=== PATIENT | male | born 1985 | race American Indian/Alaskan Native ===

== ENCOUNTER 2020-11-04 22:18 | Emergency (ER) | payer MEDICAID ==
[2020-11-04 23:53] LABS: Basophils % (Auto) 0.3 % (0.0-1.8); Eosinophils # (Auto) 0.1 K/mm3 (0.0-0.4); Eosinophils % (Auto) 1.4 % (0.0-4.3); Hematocrit 41.8 % (35.5-45.6); Hemoglobin 13.8 gm/dl (11.8-15.2); Lymphocytes # (Auto) 1.8 K/mm3 (1.2-5.4); Lymphocytes % (Auto) 42.9 % (13.4-35.0); Mean Corpuscular HGB Conc 33 % (32-34); Mean Corpuscular Volume 83 fl (84-94); Monocytes # (Auto) 0.5 K/mm3 (0.0-0.8); Monocytes % (Auto) 10.9 % (0.0-7.3); Platelet Count 206 K/mm3 (140-440); Red Blood Count 5.03 M/mm3 (3.65-5.03); Red Cell Distribution Width 15.5 % (13.2-15.2)
[2020-11-05 00:02] LABS: BUN/Creatinine Ratio 16; Blood Urea Nitrogen 18 mg/dL (9-20); Calcium 9.4 mg/dL (8.4-10.2); Hemolysis Index 6
[2020-11-05 01:12] LABS: Bilirubin,Urine NEG (Negative); Blood,Urine NEG (Negative); Color,Urine Yellow (Yellow); Mucus,Urine FEW /HPF; Protein,Urine <15 mg/dL mg/dL (Negative); RBC,Urine < 1.0 /HPF (0.0-6.0); Urobilinogen,Urine < 2.0 mg/dL (<2.0)
[2020-11-05 01:19] LABS: Amphetamine Screen,Urine PRESUMPTIVE NEGATIVE; Benzodiazepines Screen,Urine PRESUMPTIVE NEGATIVE; Cannabinoid Screen,Urine PRESUMPTIVE NEGATIVE; Cocaine Screen,Urine PRESUMPTIVE NEGATIVE; Methadone Screen,Urine PRESUMPTIVE NEGATIVE; Opiate Screen,Urine PRESUMPTIVE NEGATIVE
[2020-11-05] MEDS ORDERED: ACETAMINOPHEN 325 MG TAB PO ONE (01:51)
--- NOTE | 2020-11-05 02:07 | Emergency Department Report ---
ED Medical Clearance HPI - General Chief complaint: Medical Clearance Stated complaint: HIGH BP Time Seen by Provider: 11/05/20 01:50 Source: patient Mode of arrival: Ambulatory - History of Present Illness Initial comments: Patient is a 35-year-old male who presents emergency room with needing medical clearance. Patient states he views medical clearance to be admitted to [facility]. Patient states he was sent to [facility] specifically for medical clearance. Patient states is already been accepted. Patient denies chest pain. Patient denies chest pain. Patient denies anxiety. Patient complains of depression. Patient denies suicidal homicidal ideation. Patient denies hallucinations. Patient complains of a headache. States headache is a 3 out of 10. Patient states it is a mild frontal headache. Patient denies blurry vision. Patient denies fever. Patient denies chills. Patient denies neck stiffness. Patient denies recent travel. Patient denies recent international travel. Patient denies exposure to the novel coronavirus. Patient denies sick contacts. Patient denies fever and chills. Patient denies cough. Patient denies diarrhea. Patient denies coming in contact with anybody with symptoms of the novel coronavirus. Complaint: medical clearance request -: Sudden Reason for Medical Clearance: psychiatric condition Place: home Alledged Intoxication: No Compliant with Home Medications: Yes Traumatic Symptoms: denies traumatic injury Associated Symptoms: headaches. denies: chest pain, shortness of breath, palpitations, diaphoresis, confusion, cough, fever/chills, anorexia, malaise, nausea/vomiting, rash, seizure, syncope, weakness Treatments Prior to Arrival: none Allergies/Adverse reactions: Allergies Allergy/AdvReac Type Severity Reaction Status Date / Time No Known Allergies Allergy Unverified 11/04/20 23:08 ED Review of Systems ROS: Stated complaint: HIGH BP Other details as noted in HPI Constitutional: denies: chills, fever Eyes: denies: eye pain, eye discharge, vision change ENT: denies: ear pain, throat pain Respiratory: denies: cough, shortness of breath, wheezing Cardiovascular: denies: chest pain, palpitations Endocrine: no symptoms reported Gastrointestinal: denies: abdominal pain, nausea, diarrhea Genitourinary: denies: urgency, dysuria Musculoskeletal: denies: back pain, joint swelling, arthralgia Skin: denies: rash, lesions Neurological: as per HPI, headache. denies: weakness, paresthesias Psychiatric: as per HPI, depression. denies: anxiety Hematological/Lymphatic: denies: easy bleeding, easy bruising ED Past Medical Hx - Past Medical History Previous Medical History?: Yes Hx Psychiatric Treatment: Yes Additional medical history: CP - Surgical History Past Surgical History?: No - Family History Family history: no significant - Social History Smoking Status: Current Every Day Smoker Substance Use Type: None ED Physical Exam - General Limitations: No Limitations General appearance: alert, in no apparent distress - Head Head exam: Present: atraumatic, normocephalic - Eye Eye exam: Present: normal appearance - ENT ENT exam: Present: mucous membranes moist - Neck Neck exam: Present: normal inspection - Respiratory Respiratory exam: Present: normal lung sounds bilaterally. Absent: respiratory distress - Cardiovascular Cardiovascular Exam: Present: regular rate, normal rhythm. Absent: systolic murmur, diastolic murmur, rubs, gallop - GI/Abdominal GI/Abdominal exam: Present: soft, normal bowel sounds - Rectal Rectal exam: Present: deferred - Extremities Exam Extremities exam: Present: normal inspection - Back Exam Back exam: Present: normal inspection - Neurological Exam Neurological exam: Present: alert, oriented X3 - Psychiatric Psychiatric exam: Present: flat affect. Absent: homicidal ideation, suicidal ideation - Skin Skin exam: Present: warm, dry, intact, normal color. Absent: rash ED Course Vital Signs 11/04/20 23:08 Temperature 97.9 F Pulse Rate 77 Respiratory 16 Rate Blood Pressure 137/76 O2 Sat by Pulse 100 Oximetry - Reevaluation(s) Reevaluation #1: Patient is medically cleared. Patient will be given Tylenol for his headache. I discussed all results and clinical findings with patient. I discussed plan of care with patient. Patient agrees with plan of care. Patient is stable for discharge. Patient will be discharged home. Patient given discharge inst ructions. Patient voiced understanding of discharge instructions. 11/05/20 02:10 ED Medical Decision Making - Lab Data Result diagrams: 11/04/20 23:23 11/04/20 23:23 - Medical Decision Making Patient is a 35-year-old male who presents emergency room for medical clearance. Patient needs medical clearance for psychiatric admission. Patient being admitted to [facility] for mental health and depression. Patient does not have any acute need for a 1013. Patient denies suicidal h omicidal ideations. Patient denies hallucinations. Patient has already been accepted to [facility]. Patient had labs done which were essentially unremarkable. Patient is medically cleared. Patient not require any further emergency medical services. Patient does not require inpatient services. Patient will be discharged from the ER and transported over to [facility] facility. Patient is stable for discharge. - Differential Diagnosis Medical clearance, psychiatric admission, depression ED Disposition Clinical Impression: Medical clearance for psychiatric admission Depression Qualifiers: Depression Type: unspecified Qualified Code(s): F32.9 - Major depressive disorder, single episode, unspecified Headache Qualifiers: Headache type: unspecified Headache chronicity pattern: acute headache Intractability: not intractable Qualified Code(s): R51.9 - Headache, unspecified Disposition: [id number]/[id number] PSY HOSP/PSY UNIT Is pt being admited?: No Does the pt Need Aspirin: No Condition: Stable Instructions: Major Depressive Disorder, Adult, [id number], Medical Screening Exam Additional Instructions: Patient to be discharged from the ER and go directly to [facility]. Patient to follow-up with primary care in 2 to 3 days. Patient to increase water. Patient to take Tylenol or ibuprofen as needed for pain. Patient to return to the ER if condition worsens, changes or new symptoms arise.
[2020-11-05 03:19] VITALS: BP 128/72
== END 2020-11-05 04:25 ==
LOC: ED 22:18
DX: F32.9 Major depressive disorder, single episode, unspecified (principal); R51.9 Headache, unspecified; F17.200 Nicotine dependence, unspecified, uncomplicated; Z79.899 Other long term (current) drug therapy; Z00.8 Encounter for other general examination
CPT/HCPCS: 36415; 80048; 80307; 80320; 81001; 85025; G0480